=== PATIENT | female | born 1935 | race African-American/Black ===

== ENCOUNTER 2018-06-02 12:52 | Inpatient (IN) | payer MEDICARE, BC ==
[~2018-06-02] VITALS: Ht 162.6 cm; Wt 87.5 kg
[2018-06-02 16:31] LABS: BASOPHILS % 0.4 % (0.0-2.0); EOSINOPHILS % 0.8 % (0.0-5.0); HEMATOCRIT. 37.9 % (36.0-48.0); HEMOGLOBIN. 12.4 g/dL (12.0-16.0); LYMPHOCYTES % 26.4 % (20.0-50.0); MEAN CORPUSCULAR HEMOGLOBIN 30.1 pg (28.0-32.0); MEAN CORPUSCULAR VOLUME 91.9 fL (81.0-99.0); MEAN PLATELET VOLUME 8.2 fl (7.4-10.4); MONOCYTES % 8.1 % (2.0-8.0); NEUTROPHILS % 64.3 % (40.0-76.0); PLATELET 222 x1000/uL (130-400); RED BLOOD CELL COUNT 4.13 mill/uL (4.2-5.4); RED CELL DISTRIBUTION WIDTH 15.1 % (11.6-14.6)
[2018-06-02 16:35] LABS: CHLORIDE 105 mEq/L (98-107)
[2018-06-02 16:38] LABS: PARTIAL THROMBOPLASTIN TIME 25.9 sec (23.4-31.0); PROTHROMBIN TIME 10.5 sec (9.1-11.1)
[2018-06-02] MEDS ORDERED: MORPHINE SULFATE 2 MG/ML CPJ (NOT FOR IM USE) IV ONE (17:30)
[2018-06-02] MEDS ORDERED: MORPHINE SULFATE 4 MG/ML CPJ (NOT FOR IM USE) IV ONE (18:30)
[2018-06-03] VITALS (7 sets, daily range): BP systolic 95–124; BP diastolic 50–97
[2018-06-03] MEDS ORDERED: ACETAMINOPHEN 500MG TABLET PO NR (06:15)
[2018-06-03 06:21] LABS: HEMATOCRIT 34.3 % (36.0-48.0); HEMOGLOBIN 11.6 g/dL (12.0-16.0); MEAN CORPUSCULAR HEMOGLOBIN 30.9 pg (28.0-32.0); MEAN CORPUSCULAR VOLUME 91.5 fL (81.0-99.0); PLATELET 204 x1000/uL (130-400); RED BLOOD CELL COUNT 3.75 mill/uL (4.2-5.4); RED CELL DISTRIBUTION WIDTH 14.5 % (11.6-14.6)
[2018-06-03 06:38] LABS: CREATINE KINASE 73 IU/L (26-192); CREATINE KINASE MB FRACTION 1.9 ng/mL (0.5-3.6)
[2018-06-03] MEDS: ASPIRIN 81MG TABLET PO SCH (12:43)
[2018-06-03] MEDS: ENOXAPARIN 40MG/0.4ML SYR SUBCUT SCH (12:43)
[2018-06-03] MEDS: TRAMADOL 50MG TABLET PO PRN (21:22)
[2018-06-04] VITALS (7 sets, daily range): BP systolic 107–141; BP diastolic 51–72
[2018-06-04] MEDS: ASPIRIN 81MG TABLET PO SCH (08:56)
[2018-06-04] MEDS: ENOXAPARIN 40MG/0.4ML SYR SUBCUT SCH (08:57)
[2018-06-04] MEDS: ATORVASTATIN CALCIUM 10MG TABLET PO SCH (20:51)
[2018-06-04] MEDS: TRAMADOL 50MG TABLET PO PRN (20:56)
[2018-06-04 21:23] LABS: BASOPHILS % 0.6 % (0.0-2.0); HEMATOCRIT. 36.3 % (36.0-48.0); HEMOGLOBIN. 11.8 g/dL (12.0-16.0); LYMPHOCYTES % 29.2 % (20.0-50.0); MEAN CORPUSCULAR HEMOGLOBIN 30.3 pg (28.0-32.0); MEAN PLATELET VOLUME 8.8 fl (7.4-10.4); MONOCYTES % 10.2 % (2.0-8.0); PLATELET 219 x1000/uL (130-400); RED BLOOD CELL COUNT 3.91 mill/uL (4.2-5.4); RED CELL DISTRIBUTION WIDTH 15.1 % (11.6-14.6)
[2018-06-05 04:00] VITALS: BP 124/63
[2018-06-05 08:15] VITALS: BP_SYST 113; BP_SYST 136; BP_DIAS 52; BP_DIAS 67
[2018-06-05 08:17] VITALS: BP 138/65
[2018-06-05] MEDS: ASPIRIN 81MG TABLET PO SCH (08:43)
[2018-06-05] MEDS: ENOXAPARIN 40MG/0.4ML SYR SUBCUT SCH (08:43)
[2018-06-05 12:00] VITALS: BP 114/52
[2018-06-05 16:00] VITALS: BP 107/81
[2018-06-05 20:00] VITALS: BP_SYST 121; BP_SYST 122; BP_SYST 125; BP_DIAS 51; BP_DIAS 66
[2018-06-05] MEDS: ATORVASTATIN CALCIUM 10MG TABLET PO SCH (20:34)
[2018-06-06] VITALS: BP 125/67
[2018-06-06 04:00] VITALS: BP 116/46
[2018-06-06 08:00] VITALS: BP 131/74
[2018-06-06] MEDS: ENOXAPARIN 40MG/0.4ML SYR SUBCUT SCH (08:45)
[2018-06-06] MEDS: ASPIRIN 81MG TABLET PO SCH (08:47)
[2018-06-06] MEDS: TRAMADOL 50MG TABLET PO PRN (11:29)
[2018-06-06 12:00] VITALS: BP 132/69
[2018-06-06] MEDS ORDERED: CYAN250010 PO (12:10)
[2018-06-06] MEDS ORDERED: HYDR-4001 PO (12:10)
[2018-06-06] MEDS ORDERED: FISH12002 PO (12:10)
[2018-06-06] MEDS ORDERED: HYDR-2510 PO (12:10)
[2018-06-06 16:00] VITALS: BP 130/70
[2018-06-06 20:00] VITALS: BP_SYST 132; BP_SYST 137; BP_DIAS 59; BP_DIAS 66; BP_DIAS 68
[2018-06-06] MEDS: ATORVASTATIN CALCIUM 10MG TABLET PO SCH ×2 (21:00→22:02)
[2018-06-07 04:00] VITALS: BP 122/68
[2018-06-07 08:00] VITALS: BP 132/66
[2018-06-07] MEDS: ASPIRIN 81MG TABLET PO SCH ×2 (09:00→09:09)
[2018-06-07] MEDS: ENOXAPARIN 40MG/0.4ML SYR SUBCUT SCH (09:09)
[2018-06-07 12:50] VITALS: BP 132/66
== END 2018-06-07 14:23 | DRG 74 ==
LOC: ER 13:02 → 6WST 17:57 → EDBEDREQ 17:59 → ENRESERV 22:04
PROVIDERS: ADMIT Internal Medicine; ATTEND Internal Medicine
DX: G90.8 Other disorders of autonomic nervous system (principal); I69.351 Hemiplegia and hemiparesis following cerebral infarction affecting right dominant side; M19.90 Unspecified osteoarthritis, unspecified site; I25.10 Atherosclerotic heart disease of native coronary artery without angina pectoris; S00.83XA Contusion of other part of head, initial encounter; W18.39XA Other fall on same level, initial encounter; E78.5 Hyperlipidemia, unspecified; I10 Essential (primary) hypertension; Z96.643 Presence of artificial hip joint, bilateral; Z79.899 Other long term (current) drug therapy; Z90.49 Acquired absence of other specified parts of digestive tract; Z79.01 Long term (current) use of anticoagulants; Y93.89 Activity, other specified; Y92.89 Other specified places as the place of occurrence of the external cause; Y99.8 Other external cause status
CPT/HCPCS: 36415; 70551; 71045; 72141; 73030; 82550; 82553; 82962; 83880; 84484; 85027; 93005; 93306; 93880; 96374; 96376; 97162; 97166; 97530; 97535; 99285; J1650; J2270

== ENCOUNTER 2018-06-07 15:03 | Inpatient (IN) | payer MEDICARE, BC ==
[~2018-06-07] VITALS: Ht 162.6 cm; Wt 87.1 kg
[~2018-06-07 15:03] MED LIST: CYAN250010 PO; FISH12002 PO; HYDR-2510 PO; HYDR-4001 PO
[2018-06-07 15:38] VITALS: BP 125/60
[2018-06-07 15:48] VITALS: BP 125/60
[2018-06-07] MEDS ORDERED: BISACODYL 5MG TABLET PO PRN (16:15)
[2018-06-07 17:31] VITALS: BP 150/77
[2018-06-07] MEDS: DOCUSATE SODIUM 100MG CAPSULE PO SCH (17:33)
[2018-06-07] MEDS: AMLODIPINE 5MG TABLET PO SCH (17:33)
[2018-06-07] MEDS: TRAMADOL 50MG TABLET PO PRN (17:33)
[2018-06-07 18:56] VITALS: BP 116/58
[2018-06-07 20:00] VITALS: BP 128/59
[2018-06-07] MEDS: ATORVASTATIN CALCIUM 10MG TABLET PO SCH (20:42)
[2018-06-08 07:57] VITALS: BP 127/61
[2018-06-08] MEDS: DOCUSATE SODIUM 100MG CAPSULE PO SCH ×2 (09:51→17:33)
[2018-06-08] MEDS: ASPIRIN 81MG TABLET PO SCH ×2 (09:51→09:58)
[2018-06-08] MEDS: AMLODIPINE 5MG TABLET PO SCH (09:51)
[2018-06-08] MEDS: ENOXAPARIN 40MG/0.4ML SYR SUBCUT SCH (09:56)
[2018-06-08 20:00] VITALS: BP 131/60
[2018-06-08] MEDS: ATORVASTATIN CALCIUM 10MG TABLET PO SCH (20:18)
[2018-06-08] MEDS: TRAMADOL 50MG TABLET PO PRN (21:34)
[2018-06-09 08:00] VITALS: BP 148/56
[2018-06-09] MEDS: AMLODIPINE 5MG TABLET PO SCH (09:45)
[2018-06-09] MEDS: ENOXAPARIN 40MG/0.4ML SYR SUBCUT SCH (09:46)
[2018-06-09] MEDS: DOCUSATE SODIUM 100MG CAPSULE PO SCH ×2 (09:46→17:53)
[2018-06-09] MEDS: LOSARTAN POTASSIUM 50 MG TABLET PO SCH (15:04)
[2018-06-09 20:00] VITALS: BP 120/54
[2018-06-09] MEDS: ATORVASTATIN CALCIUM 10MG TABLET PO SCH (21:37)
[2018-06-10 08:19] VITALS: BP 130/54
[2018-06-10] MEDS: LOSARTAN POTASSIUM 50 MG TABLET PO SCH (08:19)
[2018-06-10] MEDS: AMLODIPINE 5MG TABLET PO SCH (08:20)
[2018-06-10] MEDS: DOCUSATE SODIUM 100MG CAPSULE PO SCH ×2 (08:20→17:00)
[2018-06-10] MEDS: ENOXAPARIN 40MG/0.4ML SYR SUBCUT SCH (08:21)
[2018-06-10] MEDS: ASPIRIN 81MG TABLET PO SCH (08:24)
[2018-06-10] MEDS: CLOPIDOGREL 75MG TABLET PO SCH (11:47)
[2018-06-10 20:00] VITALS: BP 123/62
[2018-06-10] MEDS: ATORVASTATIN CALCIUM 10MG TABLET PO SCH (20:24)
[2018-06-11 08:00] VITALS: BP 120/56
[2018-06-11] MEDS: DOCUSATE SODIUM 100MG CAPSULE PO SCH ×2 (09:04→16:05)
[2018-06-11] MEDS: AMLODIPINE 5MG TABLET PO SCH (09:04)
[2018-06-11] MEDS: ENOXAPARIN 40MG/0.4ML SYR SUBCUT SCH (09:04)
[2018-06-11] MEDS: LOSARTAN POTASSIUM 50 MG TABLET PO SCH (09:04)
[2018-06-11] MEDS: CLOPIDOGREL 75MG TABLET PO SCH (09:04)
[2018-06-11 20:00] VITALS: BP 130/62
[2018-06-11] MEDS: LIDOCAINE HCL 4% CREAM 76GM TUBE TP PRN (21:28)
[2018-06-11] MEDS: ATORVASTATIN CALCIUM 10MG TABLET PO SCH (21:28)
[2018-06-11] MEDS: TRAMADOL 50MG TABLET PO PRN (21:42)
[2018-06-11 22:30] VITALS: BP 133/63
[2018-06-12 07:02] LABS: BASOPHILS % 0.5 % (0.0-2.0); EOSINOPHILS % 1.5 % (0.0-5.0); HEMATOCRIT. 34.7 % (36.0-48.0); HEMOGLOBIN. 11.6 g/dL (12.0-16.0); LYMPHOCYTES % 33.8 % (20.0-50.0); MEAN CORPUSCULAR HEMOGLOBIN 30.4 pg (28.0-32.0); MEAN PLATELET VOLUME 8.4 fl (7.4-10.4); MONOCYTES % 9.3 % (2.0-8.0); NEUTROPHILS % 54.9 % (40.0-76.0); PLATELET 211 x1000/uL (130-400); RED BLOOD CELL COUNT 3.81 mill/uL (4.2-5.4); RED CELL DISTRIBUTION WIDTH 14.8 % (11.6-14.6)
[2018-06-12 07:14] LABS: CHLORIDE 108 mEq/L (98-107)
[2018-06-12 07:23] LABS: PHOSPHORUS 3.6 mg/dL (2.5-4.9)
[2018-06-12 07:32] LABS: FOLIC ACID (FOLATE) SERUM 19.9 ng/mL (>5.38)
[2018-06-12 08:00] VITALS: BP_SYST 119; BP_SYST 129; BP_DIAS 48; BP_DIAS 62
[2018-06-12] MEDS: AMLODIPINE 5MG TABLET PO SCH (08:57)
[2018-06-12] MEDS: LOSARTAN POTASSIUM 50 MG TABLET PO SCH (08:57)
[2018-06-12] MEDS: CLOPIDOGREL 75MG TABLET PO SCH (08:57)
[2018-06-12] MEDS: DOCUSATE SODIUM 100MG CAPSULE PO SCH ×2 (08:57→16:52)
[2018-06-12] MEDS: TRAMADOL 50MG TABLET PO PRN (08:57)
[2018-06-12] MEDS: ENOXAPARIN 40MG/0.4ML SYR SUBCUT SCH (08:58)
[2018-06-12 20:00] VITALS: BP 116/59
[2018-06-12] MEDS: ATORVASTATIN CALCIUM 10MG TABLET PO SCH (21:32)
[2018-06-13] MEDS: LIDOCAINE HCL 4% CREAM 76GM TUBE TP PRN ×2 (00:25→16:27)
[2018-06-13 08:29] VITALS: BP 142/64
[2018-06-13] MEDS: LOSARTAN POTASSIUM 50 MG TABLET PO SCH (09:01)
[2018-06-13] MEDS: CLOPIDOGREL 75MG TABLET PO SCH (09:01)
[2018-06-13] MEDS: AMLODIPINE 5MG TABLET PO SCH (09:01)
[2018-06-13] MEDS: DOCUSATE SODIUM 100MG CAPSULE PO SCH ×2 (09:01→16:25)
[2018-06-13] MEDS: ENOXAPARIN 40MG/0.4ML SYR SUBCUT SCH (09:02)
[2018-06-13 20:00] VITALS: BP 136/70
[2018-06-13] MEDS: ATORVASTATIN CALCIUM 10MG TABLET PO SCH (21:01)
[2018-06-14 07:02] LABS: BASOPHILS % 0.5 % (0.0-2.0); EOSINOPHILS % 1.3 % (0.0-5.0); HEMATOCRIT. 33.9 % (36.0-48.0); HEMOGLOBIN. 11.3 g/dL (12.0-16.0); LYMPHOCYTES % 27.1 % (20.0-50.0); MEAN CORPUSCULAR HEMOGLOBIN 30.3 pg (28.0-32.0); MEAN CORPUSCULAR VOLUME 91.4 fL (81.0-99.0); MEAN PLATELET VOLUME 8.4 fl (7.4-10.4); MONOCYTES % 10.3 % (2.0-8.0); NEUTROPHILS % 60.8 % (40.0-76.0); PLATELET 216 x1000/uL (130-400); RED BLOOD CELL COUNT 3.71 mill/uL (4.2-5.4); RED CELL DISTRIBUTION WIDTH 14.6 % (11.6-14.6)
[2018-06-14 07:07] LABS: CHLORIDE 108 mEq/L (98-107)
[2018-06-14 07:30] VITALS: BP 122/57
[2018-06-14] MEDS: LOSARTAN POTASSIUM 50 MG TABLET PO SCH (09:00)
[2018-06-14] MEDS: DOCUSATE SODIUM 100MG CAPSULE PO SCH ×3 (09:00→17:14)
[2018-06-14] MEDS: AMLODIPINE 5MG TABLET PO SCH (09:45)
[2018-06-14] MEDS: CLOPIDOGREL 75MG TABLET PO SCH (09:45)
[2018-06-14] MEDS: ENOXAPARIN 40MG/0.4ML SYR SUBCUT SCH (09:46)
[2018-06-14] MEDS: LIDOCAINE HCL 4% CREAM 76GM TUBE TP PRN ×2 (17:15→23:25)
[2018-06-14 20:00] VITALS: BP 122/91
[2018-06-14] MEDS: ATORVASTATIN CALCIUM 10MG TABLET PO SCH (21:22)
[2018-06-15 08:00] VITALS: BP 139/76
[2018-06-15] MEDS: AMLODIPINE 5MG TABLET PO SCH (08:38)
[2018-06-15] MEDS: DOCUSATE SODIUM 100MG CAPSULE PO SCH ×2 (08:38→17:16)
[2018-06-15] MEDS: ENOXAPARIN 40MG/0.4ML SYR SUBCUT SCH (08:38)
[2018-06-15] MEDS: LOSARTAN POTASSIUM 50 MG TABLET PO SCH (08:38)
[2018-06-15] MEDS: CLOPIDOGREL 75MG TABLET PO SCH (08:38)
[2018-06-15] MEDS ORDERED: TRAMADOL 50MG TABLET PO PRN (14:15)
[2018-06-15 20:00] VITALS: BP 124/66
[2018-06-15] MEDS: ATORVASTATIN CALCIUM 10MG TABLET PO SCH (21:36)
[2018-06-16] MEDS: LIDOCAINE HCL 4% CREAM 76GM TUBE TP PRN ×2 (00:31→22:39)
[2018-06-16 08:06] VITALS: BP 128/79
[2018-06-16] MEDS: LOSARTAN POTASSIUM 50 MG TABLET PO SCH (08:56)
[2018-06-16] MEDS: AMLODIPINE 5MG TABLET PO SCH (08:56)
[2018-06-16] MEDS: ENOXAPARIN 40MG/0.4ML SYR SUBCUT SCH (08:56)
[2018-06-16] MEDS: CLOPIDOGREL 75MG TABLET PO SCH (08:56)
[2018-06-16] MEDS: DOCUSATE SODIUM 100MG CAPSULE PO SCH ×2 (08:56→16:21)
[2018-06-16 20:00] VITALS: BP 117/59
[2018-06-16] MEDS: ATORVASTATIN CALCIUM 10MG TABLET PO SCH (20:57)
[2018-06-17 08:00] VITALS: BP 149/78
[2018-06-17] MEDS: LOSARTAN POTASSIUM 50 MG TABLET PO SCH (09:30)
[2018-06-17] MEDS: DOCUSATE SODIUM 100MG CAPSULE PO SCH ×2 (09:30→16:50)
[2018-06-17] MEDS: AMLODIPINE 5MG TABLET PO SCH (09:30)
[2018-06-17] MEDS: CLOPIDOGREL 75MG TABLET PO SCH (09:30)
[2018-06-17] MEDS: ENOXAPARIN 40MG/0.4ML SYR SUBCUT SCH (09:31)
[2018-06-17 15:09] LABS: 25-HYDROXY VITAMIN D3 18 ng/mL (.)
[2018-06-17 20:00] VITALS: BP 137/77
[2018-06-17] MEDS: ATORVASTATIN CALCIUM 10MG TABLET PO SCH (20:27)
[2018-06-18 08:34] VITALS: BP 134/69
[2018-06-18] MEDS: DOCUSATE SODIUM 100MG CAPSULE PO SCH ×2 (08:36→17:08)
[2018-06-18] MEDS: AMLODIPINE 5MG TABLET PO SCH (08:37)
[2018-06-18] MEDS: LOSARTAN POTASSIUM 50 MG TABLET PO SCH (08:37)
[2018-06-18] MEDS: CLOPIDOGREL 75MG TABLET PO SCH (08:37)
[2018-06-18] MEDS: ENOXAPARIN 40MG/0.4ML SYR SUBCUT SCH (08:38)
[2018-06-18 20:00] VITALS: BP 132/62
[2018-06-18] MEDS: ATORVASTATIN CALCIUM 10MG TABLET PO SCH (20:23)
[2018-06-19 07:47] LABS: BASOPHILS % 0.5 % (0.0-2.0); EOSINOPHILS % 1.1 % (0.0-5.0); LYMPHOCYTES % 35.5 % (20.0-50.0); MEAN CORPUSCULAR HEMOGLOBIN 30.7 pg (28.0-32.0); MEAN CORPUSCULAR VOLUME 91.7 fL (81.0-99.0); MEAN PLATELET VOLUME 8.4 fl (7.4-10.4); MONOCYTES % 7.8 % (2.0-8.0); NEUTROPHILS % 55.1 % (40.0-76.0); PLATELET 233 x1000/uL (130-400); RED BLOOD CELL COUNT 3.92 mill/uL (4.2-5.4); RED CELL DISTRIBUTION WIDTH 14.6 % (11.6-14.6)
[2018-06-19 07:56] LABS: CHLORIDE 109 mEq/L (98-107)
[2018-06-19 08:42] VITALS: BP 131/81
[2018-06-19] MEDS: CLOPIDOGREL 75MG TABLET PO SCH (08:45)
[2018-06-19] MEDS: LOSARTAN POTASSIUM 50 MG TABLET PO SCH (08:46)
[2018-06-19] MEDS: DOCUSATE SODIUM 100MG CAPSULE PO SCH ×2 (08:46→17:00)
[2018-06-19] MEDS: AMLODIPINE 5MG TABLET PO SCH (08:46)
[2018-06-19] MEDS: ENOXAPARIN 40MG/0.4ML SYR SUBCUT SCH (08:47)
[2018-06-19 20:00] VITALS: BP 120/96
[2018-06-19] MEDS: ATORVASTATIN CALCIUM 10MG TABLET PO SCH (21:18)
[2018-06-20 08:00] VITALS: BP 127/79
[2018-06-20] MEDS: ENOXAPARIN 40MG/0.4ML SYR SUBCUT SCH (08:34)
[2018-06-20] MEDS: AMLODIPINE 5MG TABLET PO SCH (08:35)
[2018-06-20] MEDS: LOSARTAN POTASSIUM 50 MG TABLET PO SCH (08:35)
[2018-06-20] MEDS: CLOPIDOGREL 75MG TABLET PO SCH (08:35)
[2018-06-20] MEDS: DOCUSATE SODIUM 100MG CAPSULE PO SCH ×2 (08:35→17:11)
[2018-06-20 20:00] VITALS: BP 133/76
[2018-06-20] MEDS: ATORVASTATIN CALCIUM 10MG TABLET PO SCH (21:00)
[2018-06-20] MEDS: LIDOCAINE HCL 4% CREAM 76GM TUBE TP PRN (22:05)
[2018-06-21 08:00] VITALS: BP 166/58
[2018-06-21] MEDS: DOCUSATE SODIUM 100MG CAPSULE PO SCH ×2 (08:31→16:32)
[2018-06-21] MEDS: CLOPIDOGREL 75MG TABLET PO SCH (08:31)
[2018-06-21] MEDS: ENOXAPARIN 40MG/0.4ML SYR SUBCUT SCH (08:31)
[2018-06-21] MEDS: AMLODIPINE 5MG TABLET PO SCH (08:31)
[2018-06-21] MEDS: LOSARTAN POTASSIUM 50 MG TABLET PO SCH (08:32)
[2018-06-21 20:00] VITALS: BP 132/74
[2018-06-21] MEDS: ATORVASTATIN CALCIUM 10MG TABLET PO SCH (20:38)
[2018-06-21] MEDS: LIDOCAINE HCL 4% CREAM 76GM TUBE TP PRN (21:38)
[2018-06-22] MEDS: LIDOCAINE HCL 4% CREAM 76GM TUBE TP PRN (06:07)
[2018-06-22] MEDS: CLOPIDOGREL 75MG TABLET PO SCH (08:30)
[2018-06-22] MEDS: LOSARTAN POTASSIUM 50 MG TABLET PO SCH (08:30)
[2018-06-22] MEDS: DOCUSATE SODIUM 100MG CAPSULE PO SCH ×2 (08:30→16:26)
[2018-06-22 08:31] VITALS: BP 111/69
[2018-06-22] MEDS: ENOXAPARIN 40MG/0.4ML SYR SUBCUT SCH (08:31)
[2018-06-22] MEDS: AMLODIPINE 5MG TABLET PO SCH (08:33)
[2018-06-22] MEDS ORDERED: BISACODYL 5MG TABLET PO PRN (13:00)
[2018-06-22 20:00] VITALS: BP 112/58
[2018-06-22] MEDS: ATORVASTATIN CALCIUM 10MG TABLET PO SCH (21:33)
[2018-06-23 08:00] VITALS: BP 118/68
[2018-06-23] MEDS: AMLODIPINE 5MG TABLET PO SCH (09:00)
[2018-06-23] MEDS: DOCUSATE SODIUM 100MG CAPSULE PO SCH (09:09)
[2018-06-23] MEDS: ENOXAPARIN 40MG/0.4ML SYR SUBCUT SCH (09:09)
[2018-06-23] MEDS: CLOPIDOGREL 75MG TABLET PO SCH (09:09)
[2018-06-23] MEDS: LOSARTAN POTASSIUM 50 MG TABLET PO SCH (09:11)
[2018-06-23 14:41] VITALS: BP 118/68
== END 2018-06-23 18:30 | disposition home health service (06) | DRG 74 ==
PROVIDERS: ADMIT Psychiatry & Neurology Neurology; ATTEND Internal Medicine
DX: G90.8 Other disorders of autonomic nervous system (principal); S09.90XA Unspecified injury of head, initial encounter; M48.02 Spinal stenosis, cervical region; M47.9 Spondylosis, unspecified; E78.5 Hyperlipidemia, unspecified; I10 Essential (primary) hypertension; M13.0 Polyarthritis, unspecified; G62.9 Polyneuropathy, unspecified; G89.29 Other chronic pain; K59.00 Constipation, unspecified; F06.31 Mood disorder due to known physiological condition with depressive features; F01.50 Vascular dementia, unspecified severity, without behavioral disturbance, psychotic disturbance, mood disturbance, and anxiety; S43.004A Unspecified dislocation of right shoulder joint, initial encounter; W18.39XA Other fall on same level, initial encounter; Y93.89 Activity, other specified; I69.30 Unspecified sequelae of cerebral infarction; Z79.899 Other long term (current) drug therapy; Y92.89 Other specified places as the place of occurrence of the external cause; Y99.8 Other external cause status
CPT/HCPCS: 36415; 73030; 80048; 82306; 82607; 82746; 83735; 84100; 84443; 92523; 93970; 97110; 97112; 97116; 97162; 97166; 97530; 97535; 97760; G0515; J1650; 97763-GO

== ENCOUNTER → 2018-07-23 | Outpatient (CLI) | payer MEDICARE, BC | END | disposition home or self-care (01) | LOC: MRI 12:42 | PROVIDERS: ATTEND Internal Medicine | DX: M19.012 Primary osteoarthritis, left shoulder (principal); J34.89 Other specified disorders of nose and nasal sinuses | CPT/HCPCS: 73221 ==